=== PATIENT | male | born 2000 ===

== ENCOUNTER 2021-02-13 03:51 | Emergency (ER) | payer SELFPAY ==
[~2021-02-13] VITALS: Ht 172.7 cm; Wt 88.5 kg
[2021-02-13] MEDS ORDERED: PROCHLORPERAZINE EDISYLATE 10 MG/2 ML VIAL ONE (04:03)
[2021-02-13] MEDS ORDERED: PROCHLORPERAZINE EDISYLATE 10 MG/2 ML VIAL IV ONE (04:15)
[2021-02-13] MEDS ORDERED: IV NS 1000 ML 1,000 ML IV ONE (04:15)
--- NOTE | 2021-02-13 04:25 | NUR ---
20 y/o male bib by RA88 after ingesting approximately 200mg of edible marijuana. He is complaining of Nausea/Vomiting - single episode of emesis in the field - and presents with vomitous all over his socks. He was given Zofran ODT in the field. He is lethargic, pale, and unable to give much information regarding ROS. A&Ox4. No SI/HI/AH/VH. NSR + Sinus Tach on monitor. 12lead EKG done. BPs slightly elevated. No CP, diaphoresis, palpitations. Afebrile. Saturations >94% on room air. Lungs clear bilaterally. No SOB, no dyspnea. GI/: Nausea + Emesis. 10mg Compazine given.
[2021-02-13 04:26] LABS: HEMATOCRIT 45.5 % (36.7-47.1); MEAN CORPUSCULAR HEMOGLOBIN 29.2 uug (23.8-33.4); MEAN CORPUSCULAR VOLUME 85.1 fL (73.0-96.2); PLATELET COUNT (AUTO) 192 K/uL (152-348)
[2021-02-13 04:28] LABS: CREATININE 1.4 mg/dL (0.6-1.3); POTASSIUM 3.3 mmol/L (3.5-5.1)
--- NOTE | 2021-02-13 04:33 | NUR ---
Mother & Father at bedside.
[2021-02-13] MEDS ORDERED: POTASSIUM BICARBONATE/CIT AC 25 MEQ TABLET.EFF PO ONE (04:45)
--- NOTE | 2021-02-13 05:00 | NUR ---
[place] Father - Contact when ready for pickup
[2021-02-13] MEDS ORDERED: POTASSIUM BICARBONATE/CIT AC 25 MEQ TABLET.EFF ONE (05:35)
--- NOTE | 2021-02-13 06:20 | NUR ---
Patient fully alert & oriented. Verbalizes much improvement is condition.
--- NOTE | 2021-02-13 06:29 | NUR ---
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
--- NOTE | 2021-02-13 07:49 | NUR ---
PT IS RESTING IN BED COMFORTABLY, NO S/S OF DISTRESS AT THIS TIME. PT's FATHER WAS CALLED TO PRODUCT SAFETY SPECIALIST THE PT. MESSAGE WAS LEFT.
--- NOTE | 2021-02-13 08:13 | NUR ---
PT WAS D/C'd TO HOME. PT LEFT [facility] ER WITH HIS FATHER BY CAR. NO S/S OF DISTRESS AT THIS TIME.
[2021-02-13 08:14] VITALS: BP 131/71
== END 2021-02-13 08:15 | disposition home or self-care (01) ==
LOC: ER 03:53
DX: R11.2 Nausea with vomiting, unspecified (principal); R00.0 Tachycardia, unspecified; T40.7X5A Adverse effect of cannabis (derivatives), initial encounter; Y92.89 Other specified places as the place of occurrence of the external cause; R94.31 Abnormal electrocardiogram [ECG] [EKG]
CPT/HCPCS: 36415; 80048; 83735; 85025; 93005; 96361; 96374; 99284; J0780; A4663

== ENCOUNTER 2025-05-06 20:40 | Emergency (ER) | payer BC ==
[~2025-05-06] VITALS: Ht 172.7 cm; Wt 88.5 kg
[2025-05-06 20:40] VITALS: BP 132/73
[2025-05-06] MEDS ORDERED: CEPH500C2 PO (22:05)
[2025-05-06] MEDS ORDERED: PRED50TA PO (22:05)
[2025-05-06 22:13] VITALS: BP 130/75; O2SAT 98
== END 2025-05-06 22:13 | disposition home or self-care (01) ==
LOC: ER 20:43
DX: L03.114 Cellulitis of left upper limb (principal); L03.115 Cellulitis of right lower limb; F12.90 Cannabis use, unspecified, uncomplicated; K50.10 Crohn's disease of large intestine without complications; L29.9 Pruritus, unspecified; Z79.52 Long term (current) use of systemic steroids; Z91.148 Patient's other noncompliance with medication regimen for other reason
CPT/HCPCS: A4606; A4663; J7512